=== PATIENT | male | born 1970 | race African-American/Black ===

== ENCOUNTER 2024-03-17 06:32 | Emergency (ER) | payer MEDICAID, SELFPAY ==
[2024-03-17 06:41] VITALS: BP 166/98; PULSE 78; RESP 18; TEMP 36.8; O2SAT 99; BMI 26.5
--- NOTE | 2024-03-17 07:03 | CRLHL7_ITS ---
For Patients: As a result of the Century Cures Act, medical imaging exams and procedure reports are released immediately into your electronic medical record. You may view this report before your referring provider. If you have questions, please contact your health care provider. INDICATION: Abdominal pain, suspect pancreatitis. TECHNIQUE: CT abdomen and pelvis acquired with 66 cc Isovue 370 IV contrast. COMPARISON: None. FINDINGS: Lower chest: Unremarkable. Liver: Unremarkable. Gallbladder and bile ducts: Cholelithiasis with soft tissue stranding surrounding the fundus of the gallbladder. No biliary ductal dilation. Pancreas: Unremarkable. Spleen: Unremarkable. Adrenal glands: Intermediate density right adrenal mass measuring 4.5 x 2.8 centimeters (2/41) and intermediate density left adrenal mass measuring 4.3 x 1.7 centimeters (2/39). Kidneys: Subcentimeter hypodense lesions, likely cysts. GI tract: No obstruction. Significant bowel wall edema of the distal ascending colon and entire transverse colon. There is surrounding soft tissue stranding. Normal appendix. Vasculature: Abdominal aorta is normal in caliber. Mild aortoiliac atherosclerosis. Mesenteric arteries are patent. Lymph nodes: No lymphadenopathy. Peritoneum/Abdominal Wall: Trace pelvic ascites. Sequela of ventral hernia repair. Pelvis: Mild prostatomegaly. Bladder is incompletely distended. Bones: Sclerotic lesions in the right femoral head are indeterminate and may represent bone islands. IMPRESSION: Significant bowel wall edema involving the ascending and transverse colon. This likely represents infectious colitis, though inflammatory colitis is on the differential. Ischemia cannot be excluded and correlation should be made with lactate. No evidence of mesenteric vessel occlusion. Cholelithiasis with soft tissue stranding surrounding the gallbladder fundus is likely reactive related to surrounding colitis. Bilateral indeterminate density adrenal masses. Consider biochemical assays for further evaluation. If there is no history of malignancy, resection can be considered. If further evaluation is desired, CT or MR adrenal mass protocol can be considered. Please note that all CT scans at this facility use dose modulation, iterative reconstruction, and/or weight-based dosing when appropriate to reduce radiation dose to as low as reasonably achievable. Dictated by Ramila Don MD @ 03/17/2024 7:59:43 AM (Electronically Signed)
--- NOTE | 2024-03-17 07:12 | ED_ITS ---
HPI - General Adult General Chief complaint: Abdominal Pain Stated complaint: abdominal pain/vomiting Time Seen by Provider: 03/17/24 06:40 Source: patient Mode of arrival: ambulatory Limitations: no limitations History of Present Illness HPI narrative: 53-year-old male presents the emergency department with significant other. Reports 3 day history of abdominal pain, mid abdomen, achy in nature accompanied by nausea vomiting and diarrhea, has not hold down any liquids for 3 full days. Rates his pain 7/10. Has not tried any Tylenol, ibuprofen, and acids, antidiarrheal agents to help with symptoms. Reports that his has been ?sick? for the past few weeks as well. It sounds as though her is symptoms are more consistent with an influenza than necessarily a GI illness. He notes no bloody stools, no bloody vomit. He does on specific questioning admit that he drinks 2 beers and a shot of alcohol every day when he comes home from work but then weekends it is more of a binge drinking pattern. When I asked specifically if he has had pancreatitis before he thinks that he probably has. He is only had inguinal hernia repairs as far as GI surgeries, no prior appendectomy, colectomy, cholecystectomy etc.. No abdominal trauma. No history of any chronic illness. He reports his past medical history is benign, no major long-term health problems. No long-term medications or allergies. He does smoke cigarettes and as stated, drinks 30-40 alcoholic drink equivalents per week. ROS is notable for the abdominal symptoms as above, otherwise denies times 12 systems today. Related Data Previous Rx's ?Medication ?Instructions ?Recorded ondansetron 4 mg disintegrating 4 mg PO Q6H PRN nausea and 03/17/24 tablet vomiting #20 tabs Allergies Allergy/AdvReac Type Severity Reaction Status Date / Time No Known Drug Allergies Allergy Verified 03/17/24 06:43 [facility] Medical History Tobacco abuse ?Z72.0 - Tobacco use (ICD-10) Surgical History History of tonsillectomy ?Z90.89 - Acquired absence of other organs (ICD-10) History of inguinal hernia repair ?Z98.890 - Other specified postprocedural states (ICD-10) ?Z87.19 - Personal history of other diseases of the digestive system (ICD-10) Social History Smoking Status: Current every day smoker What tobacco products do you use: cigarettes Do you use any of these nicotine containing products: Vaping Products Second hand tobacco smoke exposure: Yes How often do you have a drink containing alcohol: monthly or less How often do you have six or more drinks on one occasion: Less than monthly AUDIT-C Alcohol total score: 2 Non-prescribed substance use: marijuana (any form) Exam Const: Vital Signs, click to edit/add: Vital Signs - 24 hr 03/17/24 06:41 Temperature 98.3 F Pulse Rate [Right Pulse Oximeter] 78 Respiratory Rate 18 Blood Pressure [Ri ght Upper Arm] 166/98 H Pulse Oximetry 99 Oxygen Delivery Me thod Room Air Documenting provider has reviewed patient's vital signs: yes Common normals: no apparent distress and alert General appearance: cooperative HENMT: Common normals: normocephalic, moist oral mucous membranes and oropharynx normal Head and scalp: normocephalic Eye: Common normals: conjunctivae normal General eye: normal appearance of both eyes Conjunctiva: conjunctiva(e) normal Neck & C-Spine: Common normals: full ROM and no lymphadenopathy Resp: Common normals: normal respiratory effort, no use of accessory muscles and clear to auscultation bilaterally Effort & inspection: able to speak in complete sentences Auscultation: clear to auscultation bilaterally Cardio: Common normals: regular rate, regular rhythm, S1 normal heart sound, S2 normal heart sound and no murmurs Rate: regular rate Rhythm: regular rhythm Heart sounds: S1 normal and S2 normal GI: Common normals: Normal to inspection, nondistended, normoactive bowel sounds present, soft to palpation, no hepatosplenomegaly and no masses Palpation: soft and no hepatosplenomegaly Other: Mildly diffusely tender, no rebound tenderness or guarding. Seems nonfocal. : Common normals: no CVA tenderness Bladder/kidney exam: no CVA tenderness Back & Pelvis: Common normals: no CVA tenderness Extremity: Common normals: normal to inspection, normal capillary refill and no pedal edema Neuro: Sensorium/orientation: alert Speech: speech normal Gait (neuro): normal gait Motor exam: no tremor noted and no movement abnormalities noted Psych: Attitude: engaged Activity/motor behavior: appropriate eye contact Mood and affect: euthymic mood Insight: insight good Judgement: judgment good Skin: Common normals: no rashes or lesions noted General skin exam: no rashes or lesions noted Course Course ED Course: 53-year-old male with 3 days of vomiting, abdominal pain had nausea suspicious for acute pancreatitis in the setting of heavy alcohol use. Cannot exclude gallstone, cholecystitis, bowel obstruction, gastroenteritis, ischemic bowel, colitis, cannabinoid vomiting syndrome, amongst others. Recommend placement of peripheral IVs since he has not held down any fluids for quite some time, bolus 1 L of normal saline, 4 of Zofran. Recommend typical intra-abdominal labs and CT of the abdomen and pelvis. Point of care creatinine to expedite imaging. Anticipate that I will have to hand over care to incoming day shift partner. Reevaluation(s) Time of Reevaluation #1: 08:15 Reevaluation #1: Labs reassuring. CT shows colitis which would fit clinically with symptoms also. There is no reasons suspect that this of anything but viral. Lactate is normal and does not suggest ischemic. He is not having any bloody stools. He is tolerating oral liquids here and has not had any further vomiting since the Zofran. He will finish up his IV fluids. The of and a dose of Toradol, omeprazole and Imodium. Counseled on management of his symptoms at home. Prescription for Zofran given 1 tablet up to every 6 hours as needed. Continue to push fluids. Home from work today but may re-attempt to go tomorrow. [id number] Tylenol 1000 mg every 6 hours and or ibuprofen 600 mg every 6 hours for discomfort. Avoid alcohol for the next few days. Patient verbalizes understanding and agreement. Written instructions also provided. Vital Signs Vital signs: Initial Vital Signs Temperature 98.3 F 03/17/24 06:41 Temperature Source Temporal Artery Scan 03/17/24 06:41 Pulse Rate 78 03/17/24 06:41 Respiratory Rate 18 03/17/24 06:41 Blood Pressure 166/98 H 03/17/24 06:41 Blood Pressure Mean 120 H 03/17/24 06:41 Blood Pressure Position Sitting 03/17/24 06:41 Pulse Oximetry 99 03/17/24 06:41 Oxygen Delivery Method Room Air 03/17/24 06:41 Vital Signs Temperature 98.3 F 03/17/24 06:41 Pulse Rate 78 03/17/24 06:41 Respiratory Rate 18 03/17/24 06:41 Blood Pressure 166/98 H 03/17/24 06:41 Pulse Oximetry 99 03/17/24 06:41 Oxygen Delivery Method Room Air 03/17/24 06:41 Temperature 98.3 F 03/17/24 06:41 Pulse Rate 78 03/17/24 06:41 Respiratory Rate 18 03/17/24 06:41 Blood Pressure 166/98 H 03/17/24 06:41 Pulse Oximetry 99 03/17/24 06:41 Oxygen Delivery Method Room Air 03/17/24 06:41 Medications Administered Medications: Discontinued Medications Generic Name Dose Route Start Last Admin Trade Name Freq PRN Reason Stop Dose Admin Sodium Chloride 1,000 mls @ 1,000 mls/hr 03/17/24 07:04 03/17/24 07:52 0.9 % Sodium Chloride 1000 Ml IV 03/17/24 08:03 1,000 mls/hr .Q1H KARUNA Administration Ondansetron HCl 4 mg 03/17/24 07:03 03/17/24 07:31 Ondansetron 2 Mg/Ml Inj IVP 03/17/24 07:04 4 mg ONCE ONE Administration Medical Decision Making Lab Data Lab results reviewed: Yes I reviewed the patient's lab results Lab results narrative: Labs reassuring except some ketones in the urine, not unexpected with his story Labs: Lab Results 03/17/24 03/17/24 03/17/24 Range/Units 07:04 07:20 07:30 WBC 7.86 (4.50-11.00) K/uL RBC 5.20 (4.30-5.90) m/uL Hgb 14.5 (13.5-17.5) gm/dL Hct 43.9 (37.0-53.0) % MCV 84 (80-100) fL MCH 28 (26-34) pg MCHC 33 (32-36) gm/dL RDW Coeff of Shaun 13.1 (11.5-15.5) % Plt Count 348 (140-440) K/uL Neut % (Auto) 78.6 H (42.0-72.0) % Lymph % (Auto) 14.8 L (20-44) % [place] % (Auto) 6.0 (0.0-11.0) % Eos % (Auto) 0.1 (0.0-7.0) % Baso % (Auto) 0.1 (0.0-3.0) % Neut # (Auto) 6.20 (1.7-7.0) K/uL Lymph # (Auto) 1.20 (0.90-2.90) K/uL [place] # (Auto) 0.50 (0.00-0.90) K/UL Eos # (Auto) 0.01 (0.00-0.50) K/uL Baso # (Auto) 0.01 (0.00-0.30) K/uL Abs Immat Gran (auto) 0.03 (0.00-0.30) K/uL Imm/Tot Granulo (auto) 0.4 % Sodium 137 (135-149) mmol/L Potassium 3.7 (3.6-5.1) mmol/L Chloride 103 (96-114) mmol/L Carbon Dioxide 26 (20-32) mmol/L Anion Gap 8 (7-15) mEq/L BUN 10 (7-30) mg/dL Creatinine 1.0 (0.5-1.5) mg/dL Estimated Creat Clear 89.94 Estimated GFR 89 ml/min Glucose 128 H (60-115) mg/dL Lactate 1.0 (0.5-1.9) mmol/L Calcium 8.7 (8.4-10.6) mg/dL Total Bilirubin 0.5 (0.1-1.5) mg/dL AST 23 (12-35) U/L ALT 14 (4-50) U/L Alkaline Phosphatase 81 (40-150) U/L C-Reactive Protein < 0.5 L (0.5-1.0) mg/dL Total Protein 7.3 (6.0-8.3) g/dL Albumin 4.4 (3.3-5.0) g/dL Lipase 79 (23-300) U/L Urine Color Yellow (Yellow) Urine Appearance Clear (Clear) Urine pH 6.5 (5.0-8.5) Ur Specific [place] 1.025 (1.000-1.030) Urine Protein 2+ A (Negative) Urine Glucose (UA) Negative (Negative) Urine Ketones 3+ A (Negative) Urine Blood Trace-intact A (Negative) Urine Nitrite Negative (Negative) Urine Bilirubin 1+ A (Negative) Urine Urobilinogen 0.2 (0.2-1.0) Ur Leukocyte Esterase Negative (Negative) Urine RBC 0-2 (0-2) Urine WBC 0-2 (0-5) Ur Squamous Epith Cells Moderate A (None-Few) Urine Bacteria None (None) Urine Mucus Moderate A (None) Urine Opiates Screen Negative (Negative) Ur Oxycodone Screen Negative (Negative) Urine Methadone Screen Negative (Negative) Ur Barbiturates Screen Negative (Negative) U Tricyclic Antidepress Negative (Negative) Ur Phencyclidine Scrn Negative (Negative) Ur Amphetamines Screen Negative (Negative) U Methamphetamines Scrn Negative (Negative) U Benzodiazepines Scrn Negative (Negative) Urine Cocaine Screen Negative (Negative) U Marijuana (THC) Screen POSITIVE A (Negative) Ur Drug Screen Comment See Note POC Creatinine 1.1 (0.6-1.3) mg/dl Imaging Data CT scan - abdomen: Attestation: I have reviewed the pertinent imaging results. My impression: Right colon inflammation but no signs of perforation, abscess or appendicitis Radiologist's impression: IMPRESSION: Significant bowel wall edema involving the ascending and transverse colon. This likely represents infectious colitis, though inflammatory colitis is on the differential. Ischemia cannot be excluded and correlation should be made with lactate. No evidence of mesenteric vessel occlusion. Cholelithiasis with soft tissue stranding surrounding the gallbladder fundus is likely reactive related to surrounding colitis. Bilateral indeterminate density adrenal masses. Consider biochemical assays for further evaluation. If there is no history of malignancy, resection can be considered. If further evaluation is desired, CT or MR adrenal mass protocol can be considered. Please note that all CT scans at this facility use dose modulation, iterative reconstruction, and/or weight-based dosing when appropriate to reduce radiation dose to as low as reasonably achievable. Discharge Plan Discharge Clinical Impression: Gastroenteritis Patient Disposition: Home w/ Parent or Adult Condition: Improved Instructions: Colitis (ED) Additional Instructions: I am glad that the anti nausea medicine has kept you from vomiting. I do think that it will take at least a few more days until things improve. I would recommend he come back to the emergency department if you have high fever, bloody stools, bloody vomit or are still unable to hold down even liquids within 24 hours. I have given her prescription for some anti nausea medicine known as Zofran. You were given a dose here in the emergency department. Plan to take another dose today at around noon and then at 6:00 p.m.. After that, take them as needed if you still have significant nausea. Continue to push fluids and then slowly advance her solid food diet once you are feeling a little bit better. Your given a single dose of Imodium, this is and antidiarrhea medicine. Often, a single dose is sufficient to treat symptoms but if you continue to have watery diarrhea, you may continue to use 1 Imodium tablet up to every 2 hours. Your given a dose of an and acid known as omeprazole. If you continue to have upper stomach discomfort, you may use this once daily as well. This virus is highly contagious and has probably affected other members of her household. Almost anyone over the age of 4 is the same dose of the anti nausea medication. Home from work today but I would attempt to go back tomorrow if your symptoms improve in your holding down liquids. Activity Level: Activity as Tolerated Discharge Diet: Regular Prescriptions: New ondansetron 4 mg tablet,disintegrating 4 mg PO Q6H PRN (Reason: nausea and vomiting) Qty: 20 0RF Follow Up/Referrals: Provider,Not a Local [Primary Care Provider] - Stand Alone Forms: [email or web address] Info Instructions
[2024-03-17] MEDS: ONDANSETRON 2 MG/ML inj 4 MG IVP (07:31)
[2024-03-17 07:33] LABS: Basophils Absolute Auto 0.01 K/uL (0.00-0.30); Basophils Percent Auto 0.1 % (0.0-3.0); Eosinophils Absolute Auto 0.01 K/uL (0.00-0.50); Eosinophils Percent Auto 0.1 % (0.0-7.0); Hematocrit 43.9 % (37.0-53.0); Hemoglobin* 14.5 gm/dL (13.5-17.5); Immature Granulocytes Abs Auto 0.03 K/uL (0.00-0.30); Immature Granulocytes Pct Auto 0.4 %; Lymphocytes Percent Auto 14.8 % (20-44); Mean Corpuscular HGB Conc 33 gm/dL (32-36); Mean Corpuscular Hemoglobin 28 pg (26-34); Mean Corpuscular Volume 84 fL (80-100); Neutrophils Percent Auto 78.6 % (42.0-72.0); Platelet Count* 348 K/uL (140-440); RDW Coefficient of Variation % 13.1 % (11.5-15.5); White Blood Count* 7.86 K/uL (4.50-11.00)
[2024-03-17 07:35] LABS: Creatinine, Point-of-Care* 1.1 mg/dl (0.6-1.3)
[2024-03-17 07:40] LABS: Appearance Urine Clear (Clear); Bilirubin Urine 1+ (Negative); Blood Urine Trace-intact (Negative); Color Urine Yellow (Yellow); Glucose Urine Negative (Negative); Ketones Urine 3+ (Negative); Leukocyte Esterase Urine Negative (Negative); Nitrite Urine Negative (Negative); Protein Urine 2+ (Negative); Specific Gravity Urine 1.025 (1.000-1.030); Urobilinogen Urine 0.2 (0.2-1.0); pH Urine 6.5 (5.0-8.5)
[2024-03-17 07:42] LABS: Slide Review Reflex No
[2024-03-17 07:45] LABS: Albumin* 4.4 g/dL (3.3-5.0); Chloride* 103 mmol/L (96-114); Potassium* 3.7 mmol/L (3.6-5.1); Sodium* 137 mmol/L (135-149)
[2024-03-17 07:48] LABS: Alkaline Phosphatase* 81 U/L (40-150); Anion Gap 8 mEq/L (7-15); Aspartate Amino Transferase* 23 U/L (12-35); Bilirubin Total* 0.5 mg/dL (0.1-1.5); Blood Urea Nitrogen* 10 mg/dL (7-30); Carbon Dioxide* 26 mmol/L (20-32); Est. Creatinine Clearance* 89.94; Estimated Glomerular Filt Rate 89 ml/min; Total Protein* 7.3 g/dL (6.0-8.3)
[2024-03-17 07:49] LABS: Amphetamine Screen Urine Negative (Negative); Barbiturate Screen Urine Negative (Negative); Benzodiazepines Screen Urine Negative (Negative); Cannabinoid Screen Urine POSITIVE (Negative); Cocaine Screen Urine Negative (Negative); Methadone Screen Urine Negative (Negative); Methamphetamines Screen Urine Negative (Negative); Opiate Screen Urine Negative (Negative); Oxycodone Screen Urine Negative (Negative); Phencyclidine Screen Urine Negative (Negative); Tricyclic Antidepressant Urine Negative (Negative)
[2024-03-17 07:49] LABS: Alanine Aminotransferase* 14 U/L (4-50); Calcium* 8.7 mg/dL (8.4-10.6); Glucose* 128 mg/dL (60-115); Lipase* 79 U/L (23-300)
[2024-03-17 07:51] LABS: C Reactive Protein* < 0.5 mg/dL (0.5-1.0)
[2024-03-17] MEDS: 0.9 % SODIUM CHLORIDE 1000 ml 1,000 ML IV (07:52)
[2024-03-17 07:56] LABS: Mucus Urine Moderate; RBC Urine 0-2 (0-2); Squamous Epithelial Cell Urine Moderate (None-Few); WBC Urine 0-2 (0-5)
[2024-03-17] MEDS: KETOROLAC 10 MG TABLET PO (08:15)
[2024-03-17] MEDS: LOPERAMIDE HCL 2 MG CAPSULE 4 MG PO (08:15)
[2024-03-17] MEDS: OMEPRAZOLE 20 MG CAPSULE DR PO (08:15)
[2024-03-17 08:19] VITALS: BP 155/105; PULSE 69; RESP 16; O2SAT 97
== END 2024-03-17 08:44 | disposition home or self-care (01) ==
PROVIDERS: Emergency Provider Family Medicine
DX: K29.70 Gastritis, unspecified, without bleeding (principal)
CPT/HCPCS: 36415; 74177; 80053; 80306; 81001; 82565; 83605; 83690; 85025; 86140; 96374; 99284; 99285; A9270; J2405; J7030; Q9967